=== PATIENT | female | born 1990 | race American Indian/Alaskan Native ===

== ENCOUNTER 2019-07-14 18:06 | Emergency (ER) | payer SELFPAY ==
[2019-07-14 18:14] VITALS: BP 123/83
[2019-07-14 18:45] LABS: Hematocrit 24.6 % (30.3-42.9); Hemoglobin 7.8 gm/dl (10.1-14.3); Mean Corpuscular HGB Conc 32 % (30-34); Mean Corpuscular Volume 76 fl (79-97); Platelet Count 389 K/mm3 (140-440); Red Blood Count 3.25 M/mm3 (3.65-5.03); Red Cell Distribution Width 19.4 % (13.2-15.2)
--- NOTE | 2019-07-14 19:36 | Emergency Department Report ---
ED Female HPI - General Chief complaint: Vaginal Bleeding Stated complaint: CYCLE FOR 3 1/2 WEEKS/CLOTTING Time Seen by Provider: 07/14/19 19:30 Source: patient Mode of arrival: Ambulatory Limitations: No Limitations - History of Present Illness Initial comments: pt is a 29 yo female who presents with menorrhagia that began 3 and a half weeks ago. states she has constant heavy bleeding for three and a half weeks. she states she has been passing clots. she states she is changing her pad every two hours. the patient denies any other symptoms just states that she is "tired of having the bleeding." she denies any fatigue, SOB, palpitations, or abd pain. she is not on an iron supplement. she states in her teenage years she was on depo injections and she states it significantly helped with her menstrual cycles. pt was evaluated in the ED on 02/2019 for this same complaint and was found to have severe anemia (hemoglobin 4) at that time, she had a pelvic US with no acute abnormality, she was recommended to have outpatient [facility] evaluation, she was placed on ferrous sulfate and given provera. she states that symptoms improved after she took those medications. she states that she never follow up with [facility] due to lack of insurance. - Related Data Previous Rx's Medication Instructions Recorded Last Taken Type Ferrous Sulfate [Feosol 325 MG tab] 325 mg PO BID #60 tablet 03/29/19 Unknown Rx medroxyPROGESTERone ACETATE 10 mg PO QDAY #10 tablet 03/29/19 Unknown Rx [Provera] Ferrous Sulfate [Ferrous Sulfate 324 mg PO DAILY #120 tablet. 07/14/19 Unknown Rx 324 MG] medroxyPROGESTERone ACETATE 10 mg PO DAILY #10 tablet 07/14/19 Unknown Rx [Provera] Allergies Allergy/AdvReac Type Severity Reaction Status Date / Time No Known Allergies Allergy Verified 07/16/15 18:23 ED Review of Systems ROS: Stated complaint: CYCLE FOR 3 1/2 WEEKS/CLOTTING Other details as noted in HPI Comment: All other systems reviewed and negative ED Past Medical Hx - Past Medical History Previous Medical History?: No Hx Congestive Heart Failure: No Hx Diabetes: No Hx Asthma: No Hx COPD: No Hx HIV: No - Surgical History Additional Surgical History: - Social History Smoking Status: Never Smoker Substance Use Type: None - Medications Home Medications: Home Medications Medication Instructions Recorded Confirmed Last Taken Type Ferrous Sulfate [Feosol 325 MG tab] 325 mg PO BID #60 tablet 03/29/19 Unknown Rx medroxyPROGESTERone ACETATE 10 mg PO QDAY #10 tablet 03/29/19 Unknown Rx [Provera] Ferrous Sulfate [Ferrous Sulfate 324 mg PO DAILY #120 tablet. 07/14/19 Unknown Rx 324 MG] medroxyPROGESTERone ACETATE 10 mg PO DAILY #10 tablet 07/14/19 Unknown Rx [Provera] ED Physical Exam - General Limitations: No Limitations General appearance: alert, in no apparent distress - Head Head exam: Present: atraumatic, normocephalic - Eye Eye exam: Present: normal appearance - ENT ENT exam: Present: mucous membranes moist - Respiratory Respiratory exam: Present: normal lung sounds bilaterally. Absent: respiratory distress, wheezes, rales, rhonchi, stridor, chest wall tenderness, accessory muscle use, decreased breath sounds, prolonged expiratory - Cardiovascular Cardiovascular Exam: Present: regular rate, normal rhythm, normal heart sounds. Absent: systolic murmur, diastolic murmur, rubs, gallop - GI/Abdominal GI/Abdominal exam: Present: soft, normal bowel sounds. Absent: distended, tenderness, guarding, rebound, rigid - Neurological Exam Neurological exam: Present: alert, oriented X3 - Psychiatric Psychiatric exam: Present: normal affect, normal mood - Skin Skin exam: Present: warm, dry, intact ED Course Vital Signs 07/14/19 18:09 Temperature 98.1 F Pulse Rate 95 H Respiratory 18 Rate Blood Pressure 123/83 O2 Sat by Pulse 100 Oximetry ED Medical Decision Making - Lab Data Result diagrams: 07/14/19 18:20 Lab Results 07/14/19 Range/Units 18:20 WBC 11.7 H (4.5-11.0) K/mm3 RBC 3.25 L (3.65-5.03) M/mm3 Hgb 7.8 L (10.1-14.3) gm/dl Hct 24.6 L (30.3-42.9) % MCV 76 L (79-97) fl MCH 24 L (28-32) pg MCHC 32 (30-34) % RDW 19.4 H (13.2-15.2) % Plt Count 389 (140-440) K/mm3 Vital Signs 07/14/19 18:09 Temperature 98.1 F Pulse Rate 95 H Respiratory 18 Rate Blood Pressure 123/83 O2 Sat by Pulse 100 Oximetry - Medical Decision Making pt is a 29 yo female who presents with menorrhagia that began 3 and a half weeks ago. states she has constant heavy bleeding for three and a half weeks. she states she has been passing clots. she states she is changing her pad every two hours. the patient denies any other symptoms just states that she is "tired of having the bleeding." she denies any fatigue, SOB, palpitations, lightheadedness, or abd pain. she is not on an iron supplement. she states in her teenage years she was on depo injections and she states it significantly helped with her menstrual cycles. pt was evaluated in the ED on 02/2019 for this same complaint and was found to have severe anemia (hemoglobin 4) at that time requiring RBC transfusion, she had a pelvic US with no acute abnormality, she was evaluated by [facility] inpatient and recommended to have outpatient [facility] evaluation, she was placed on ferrous sulfate and given provera. she states that symptoms improved after she took those medications. she states that she never follow up with [facility] due to lack of insurance. Vitals are stable. Labs with stable anemia, H&H is 7.8/24.6, pt has microcytic anemia, most likely secondary to chronic menorrhagia. Discussed results with patient. Patient will be placed on Provera and ferrous sulfate. Stressed the importance of [facility] follow-up with the patient for further evaluation and to discuss the possibility of control options. Patient was given a list of community resources. Discussed with the patient that the health department also does women's health. Patient given good Rx to help with prescriptions. advised pt please take medication as prescribed. increase iron in your diet. please follow up with an [facility] it is very important you follow up for further evaluation and to discuss control options. return to the emergency room for any new or worsening symptoms. - Differential Diagnosis Menorrhagia, AUB, hormone imbalance, fibroids, endometriosis, adenomyosis Critical care attestation.: If time is entered above; I have spent that time in minutes in the direct care of this critically ill patient, excluding procedure time. ED Disposition Clinical Impression: Menorrhagia Qualifiers: Menorrhagia type: with onset of menstrual periods Qualified Code(s): N92.2 - Excessive menstruation at puberty Anemia Qualifiers: Anemia type: iron deficiency Iron deficiency anemia type: chronic blood loss Qualified Code(s): D50.0 - Iron deficiency anemia secondary to blood loss (chronic) Disposition: TO HOME OR SELFCARE Is pt being admited?: No Does the pt Need Aspirin: No Condition: Stable Instructions: Iron Rich Diet (ED), Menorrhagia (ED), Anemia (ED) Additional Instructions: please take medication as prescribed. increase iron in your diet. please follow up with an [facility] it is very important you follow up for further evaluation and to discuss control options. return to the emergency room for any new or worsening symptoms. Prescriptions: Ferrous Sulfate [Ferrous Sulfate 324 MG] 324 mg PO DAILY #120 tablet. medroxyPROGESTERone ACETATE [Provera] 10 mg PO DAILY #10 tablet Referrals: AMEENA OLVERA MD [Staff Physician] - 3-5 Days [facility] [Provider Group] - 3-5 Days [facility] [Outside] - 3-5 Days [facility] [Outside] - 3-[address] [facility] [Outside] - 3-5 Days Time of Disposition: 19:36 Print Language: CZECH
== END 2019-07-14 19:48 | disposition home or self-care (01) ==
LOC: ED 18:06
DX: N92.0 Excessive and frequent menstruation with regular cycle (principal); D64.9 Anemia, unspecified; Z79.899 Other long term (current) drug therapy; Z98.890 Other specified postprocedural states
CPT/HCPCS: 36415; 85027; 99283

== ENCOUNTER 2020-07-12 16:38 | Emergency (ER) | payer SELFPAY ==
[2020-07-12 17:31] VITALS: BP 129/77
== END 2020-07-12 19:31 | disposition left against medical advice (07) ==
LOC: ED 16:38
DX: N93.9 Abnormal uterine and vaginal bleeding, unspecified (principal); Z53.21 Procedure and treatment not carried out due to patient leaving prior to being seen by health care provider